=== PATIENT | female | born 1965 | race Hispanic/Latino ===

== ENCOUNTER 2018-06-24 09:23 | Emergency (ER) | payer BC | END 2018-06-24 10:19 | disposition home or self-care (01) | LOC: SCSER 09:23 | DX: S39.012A Strain of muscle, fascia and tendon of lower back, initial encounter (principal); E03.9 Hypothyroidism, unspecified; J45.909 Unspecified asthma, uncomplicated; X50.1XXA Overexertion from prolonged static or awkward postures, initial encounter | CPT/HCPCS: 99283 ==

== ENCOUNTER 2019-02-12 15:09 | Outpatient (CLI) | payer BC ==
--- NOTE | 2019-02-12 15:37 | ULT ---
THYROID ULTRASOUND INDICATION: Hypothyroidism TECHNIQUE: Grayscale and color Doppler images were obtained of the thyroid gland. COMPARISON: None FINDINGS: Right thyroid lobe: The right thyroid lobe measures 1.3 x 1.4 x 4.2 cm cm. There are multiple small n odules within the right thyroid lobe. There is a 7 mm hypoechoic solid nodule within the mid right thyroid lobe. Thyroid isthmus: The thyroid isthmus measures 2.5 mm . Left thyroid lobe: Surgically absent IMPRESSION: 1. Postprocedural change of a left thyroidectomy. 2. Multiple right-sided thyroid nodules. The largest measures 7 mm within the mid right thyroid gland . This is consistent with a TIRADS 4 lesion. Since this lesion is below 1 cm in size, no follow-up is recommended.
[2019-02-12 18:31] LABS: Free T4 (Free Thyroxine) 0.79 ng/dL (0.70-1.48); Thyroid Stimulating Hormone 0.8518 uIU/mL (0.35-4.94)
[2019-02-13 16:11] LABS: Allergen,Alternaria altern.IgE Less than 0.10 kU/L (Less than 0.10); Allergen,Ash white IgE Less than 0.10 kU/L (Less than 0.10); Allergen,Aspergillus fumig.IgE Less than 0.10 kU/L (Less than 0.10); Allergen,Beef IgE Less than 0.10 kU/L (Less than 0.10); Allergen,Bermuda grass IgE 0.68 kU/L (Less than 0.10); Allergen,Cat dander IgE Less than 0.10 kU/L (Less than 0.10); Allergen,Cedar mountain IgE Less than 0.10 kU/L (Less than 0.10); Allergen,Chocolate/Cacao IgE Less than 0.10 kU/L (Less than 0.10); Allergen,Cladosporium herb.IgE Less than 0.10 kU/L (Less than 0.10); Allergen,Corn IgE Less than 0.10 kU/L (Less than 0.10); Allergen,Cottonwood Tree IgE Less than 0.10 kU/L (Less than 0.10); Allergen,Crab IgE Less than 0.10 kU/L (Less than 0.10); Allergen,D. pteronyssinus IgE 3.37 kU/L (Less than 0.10); Allergen,Dog dander IgE 6.26 kU/L (Less than 0.10); Allergen,Egg white IgE Less than 0.10 kU/L (Less than 0.10); Allergen,Egg yolk IgE Less than 0.10 kU/L (Less than 0.10); Allergen,Elm AmericanWhite IgE Less than 0.10 kU/L (Less than 0.10); Allergen,Milk IgE Less than 0.10 kU/L (Less than 0.10); Allergen,Oat IgE Less than 0.10 kU/L (Less than 0.10); Allergen,Peanut IgE Less than 0.10 kU/L (Less than 0.10); Allergen,Pecan nut IgE Less than 0.10 kU/L (Less than 0.10); Allergen,Pecan/Hickory IgE Less than 0.10 kU/L (Less than 0.10); Allergen,Pork IgE Less than 0.10 kU/L (Less than 0.10); Allergen,Rice IgE Less than 0.10 kU/L (Less than 0.10); Allergen,Shrimp IgE Less than 0.10 kU/L (Less than 0.10); Allergen,Soybean IgE Less than 0.10 kU/L (Less than 0.10); Allergen,Timothy grass IgE 0.23 kU/L (Less than 0.10); Allergen,Tomato IgE Less than 0.10 kU/L (Less than 0.10); Allergen,Wheat IgE Less than 0.10 kU/L (Less than 0.10)
[2019-02-14 07:13] LABS: Triidothyronine-T3 108 ng/dL (71-180)
== END 2019-02-12 15:10 | disposition home or self-care (01) ==
LOC: SCSULT 15:09
PROVIDERS: ATTEND Family Medicine
DX: E04.2 Nontoxic multinodular goiter (principal); Z91.09 Other allergy status, other than to drugs and biological substances; M25.561 Pain in right knee; M25.562 Pain in left knee; M25.521 Pain in right elbow; M25.522 Pain in left elbow; E89.0 Postprocedural hypothyroidism
CPT/HCPCS: 36415; 76536; 82785; 83520; 84439; 84443; 84445; 84480; 84481; 84482; 86140; 86200; 86235; 86376; 86800